=== PATIENT | male | born 1990 | race Caucasian/White ===

== ENCOUNTER 2023-09-11 05:36 | Emergency (ER) | payer MEDICAID ==
[~2023-09-11] VITALS: Ht 175.3 cm; Wt 136.1 kg
[2023-09-11 05:40] VITALS: BP_SYST 143; PULSE 110; RESP 16; TEMP 97.6; O2SAT 97
[2023-09-11 06:03] VITALS: BP_SYST 140; PULSE 105; RESP 18; TEMP 97.6; O2SAT 98
== END 2023-09-11 06:03 ==
LOC: SED 05:36
DX: Z02.89 Encounter for other administrative examinations (principal); Z79.899 Other long term (current) drug therapy
CPT/HCPCS: 99283